=== PATIENT | male | born 1990 | race Caucasian/White ===

== ENCOUNTER 2021-08-08 08:58 | Emergency (ER) | payer SELFPAY ==
[~2021-08-08] VITALS: Ht 172 cm; Wt 83.0 kg
[~2021-08-08 08:58] MED LIST: CYCL10TA9 PO; TRAM50TA2 PO
[2021-08-08] MEDS ORDERED: KETOROLAC 30 MG/ML VIAL IM ONE (10:30)
[2021-08-08] MEDS ORDERED: ORPHENADRINE 60 MG/2 ML (NORFLEX) AMP (ED ONLY) IM ONE (10:30)
[2021-08-08] MEDS ORDERED: CYCL10TA25 PO (11:53)
[2021-08-08] MEDS ORDERED: PRD20T PO (11:53)
--- NOTE | 2021-08-08 11:54 | ED General ---
General Chief Complaint: Upper Extremity Stated Complaint: L SHOULDER PAIN Nursing Triage Note: patient complaint of left shoulder pain for three days ago Source of Information: Patient Exam Limitations: No Limitations History of Present Illness Date Seen by Provider: August 08, 2021 Time Seen by Provider: 10:10 Initial Comments This 31-year-old young man presents to the emergency room complaining of 3 to 4 days of pain between the left shoulder blade and spine and beneath the left shoulder blade. He can identify no specific injuries. He reports 10 years ago a bundle of shingles fell on him resulting in injury and he wonders if this may be related. 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 He feels like there may be some intermittent exacerbations with spasms. He has not tried to treat with any medications but has smoked marijuana which did not give effective relief. Allergies and Home Medications Allergies Coded Allergies: No Known Drug Allergies (Unverified , 05/04/13) Patient Home Medication List Home Medication List Reviewed: Yes Cyclobenzaprine HCl (Cyclobenzaprine HCl) 10 Mg Tablet, 10 MG PO Q8H PRN for SPASMS Prescribed by: ALEJANDRA MONTES on 08/08/21 1153 Cyclobenzaprine Hcl (Cyclobenzaprine Hcl) 10 Mg Tablet, 1 EACH PO Q8HR PRN PRN for SPASMS Prescribed by: ALECIA MCKEON on 05/04/13 1358 Prednisone (Prednisone) 20 Mg Tab, 40 MG PO DAILY Prescribed by: ALEJANDRA MONTES on 08/08/21 1153 Tramadol Hcl (Tramadol Hcl) 50 Mg Tablet, 50 MG PO Q4H PRN for PAIN Prescribed by: ALECIA MCKEON on 05/04/13 1358 Review of Systems Review of Systems Constitutional: no symptoms reported EENTM: no symptoms reported Respiratory: no symptoms reported Cardiovascular: no symptoms reported Gastrointestinal: no symptoms reported Genitourinary: no symptoms reported Musculoskeletal: see HPI Skin: no symptoms reported Psychiatric/Neurological: No Symptoms Reported Hematologic/Lymphatic: No Symptoms Reported Immunological/Allergic: no symptoms reported Past Xqawzyc-Osafou-Yoiurb Hx Patient Social History Tobacco Use?: Yes Tobacco type used: Cigarettes Smoking Status: Current Everyday Smoker Substance use?: Yes Substance type: Methamphetamine, Marijuana Alcohol Use?: No Pt feels they are or have been: No Immunizations Up To Date First/Initial COVID19 Vaccinat: n/a Second COVID19 Vaccination Nathanael: n/a Third COVID19 Vaccination Date: n/a Past Medical History Surgery/Hospitalization HX: right wrist surgery, double hernia, asthma Surgeries: Yes Abdominal (Hernia), Orthopedic (Wrist) Respiratory: Yes Asthma Cardiac: No 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 oz. [id number]; 28.00 BMI Method:Stated General Appearance: WD/WN, Mild Distress HEENT: PERRL/EOMI, Normal ENT Inspection Neck: Normal Inspection, Non Tender Respiratory: Lungs Clear, Normal Breath Sounds, No Accessory Muscle Use Cardiovascular: Regular Rate, Rhythm, No Edema, No Murmur Gastrointestinal: Non Tender, Soft Back: Normal Inspection, Other (Tenderness medial to and inferior to the left scapula. No obvious injury. 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 Norm as Tested Skin: Normal Color, Warm/Dry Progress/Results/Core Measures Suspected Sepsis SIRS Temperature: Pulse: 68 Respiratory Rate: 18 Blood Pressure 122 /78 Mean: 93 Results/Orders My Orders Orders - ALEJANDRA REYES MD Ketorolac Injection (Toradol Injection) (08/08/21 10:30) Orphenadrine Inj (Ed Only) (Norflex Inje (08/08/21 10:30) Medications Given in ED Current Medications Medications Dose Ordered Sig/Edgardo Route Start Time Stop Time Status Last Admin Dose Admin Ketorolac Tromethamine 30 mg ONCE ONCE IM 08/08/21 10:30 08/08/21 10:31 DC 08/08/21 10:37 30 MG Orphenadrine Citrate 60 mg ONCE ONCE IM 08/08/21 10:30 08/08/21 10:31 DC 08/08/21 10:37 60 MG Vital Signs/I&O 08/08/21 08/08/21 09:21 11:58 Temp 35.8 35.8 Pulse 68 68 Resp 18 18 B/P (MAP) 122/78 (93) 122/78 Pulse Ox 100 100 Capillary Refill : Less Than 3 Seconds Blood Pressure Mean: 93 Progress Note : Progress Note The nature of this pain suggests an overuse injury or muscle strain. Toradol and Norflex were administered with some improvement in pain. See discharge instructions for further discussion. Departure Impression Primary Impression: Thoracic back pain Qualified Codes: M54.6 - Pain in thoracic spine Additional Impression: Spasm of thoracic back muscle Disposition: HOME, SELF-CARE Condition: Stable Departure-Patient Inst. Decision time for Depature: 11:51 Referrals: NO,LOCAL PHYSICIAN (PCP/Family) Primary Care Physician Patient Instructions: Muscle Spasm ED, Upper Back Pain Add. Discharge Instructions: Drink plenty of clear liquids to stay well-hydrated. For primary pain control take a combination of ibuprofen 600 mg every 6 hours and Tylenol (acetaminophen) up to 1000 mg every 6 hours as needed. If your pain is not improving significantly within 2 days, start the prednisone prescription as provided. Take prednisone with food or milk to avoid stomach upset. Take early in the day to avoid sleep disturbance. Use cyclobenzaprine muscle relaxer as prescribed to help calm down the muscle spasms and tension. This medication may cause drowsiness so use with caution and do not operate machinery or drive while on it. Gentle heat and gentle stretching may also help improve your pain. Avoid any strenuous activity or lifting that uses the muscle groups of your upper back or could further worsen strain in this area until pain resolves. Return to care if you do not have significant improvement in your symptoms by the end of the week. Return to the emergency room if you have worsening symptoms. All discharge instructions reviewed with patient and/or family. Voiced understanding. Scripts Prednisone (Prednisone) 20 Mg Tab 40 MG PO DAILY, #6 TAB 0 Refills Prov: ALEJANDRA REYES MD 08/08/21 Cyclobenzaprine HCl (Cyclobenzaprine HCl) 10 Mg Tablet 10 MG PO Q8H PRN for SPASMS, #15 TAB 0 Refills Prov: ALEJANDRA REYES MD 08/08/21 ALEJANDRA REYES MD August 08, 2021 11:54
[2021-08-08 11:58] VITALS: BP 122/78
== END 2021-08-08 11:58 | disposition home or self-care (01) ==
LOC: EDUNIT# 08:58 → ER 09:00
DX: M62.830 Muscle spasm of back (principal); F17.210 Nicotine dependence, cigarettes, uncomplicated
CPT/HCPCS: 99284